=== PATIENT | female | born 1965 | race Caucasian/White ===

== ENCOUNTER 2016-10-25 15:45 | Emergency (ER) | payer OTHER ==
[~2016-10-25] VITALS: Ht 157.5 cm; Wt 126.6 kg
[~2016-10-25 15:45] MED LIST: ABL/15 PO; ALBU1AER9 INH; AMIT50TA3 PO; ATV/1 PO; ERGO500037 PO; EZET10TA63 PO; FLUT0.15 NAE; INSUINJ4 SQ; LEVO150T PO; LIRA18IN SC; LISI-725 PO; MOME110A INH; REPA2TAB12 PO; ROSU40TA PO; SERT-234 PO; SULI150T PO; SUMA6KIT IM; ZOLP10TA6 PO
[2016-10-25 15:48] VITALS: TEMP 36.7; Ht 157.5 cm; Wt 126.6 kg
[2016-10-25] MEDS ORDERED: ALBUT/IPRATROP 3MG/0.5MG NEB 3 ML VIAL INH STA (16:34)
[2016-10-25 16:57] LABS: BASO % 0.3 %; BASO ABS # 0.03 K/uL (0-0.2); COMPLETE YES; EOS % 0.9 %; HEMATOCRIT 42.3 % (37-47); IG% 0.3 %; LYMPH % 23.3 %; LYMPH ABS # 2.67 K/uL (1.2-3.4); MEAN CELL VOLUME 86.5 fL (80-100); MEAN CORPUSCULAR HGB CONC 32.4 g/dl (32-36); MEAN PLATELET VOLUME 10.1 fL (7.4-10.4); MONO % 3.1 %; NEUT % 72.1 %; PLATELET COUNT 229 K/uL (130-400); RED BLOOD COUNT 4.89 M/uL (4.2-5.4); WHITE BLOOD COUNT 11.45 K/uL (4.8-10.8)
[2016-10-25 17:13] LABS: PARTIAL THROMBOPLASTIN RATIO 1.1; PROTHROMBIN TIME (PATIENT) 10.4 SECONDS (9.0-12.0)
[2016-10-25 17:15] LABS: BUN/CREATININE RATIO 12.6 (10-20); CALCIUM 8.8 mg/dl (8.5-10.1); CREATININE 0.78 mg/dl (0.60-1.20); POTASSIUM 3.6 mmol/L (3.5-5.1)
--- NOTE | 2016-10-25 17:22 | DIAGNOSTIC IMAGING REPORT ---
CHEST ONE VIEW PORTABLE CLINICAL HISTORY: Evaluate Fever/Sepsis fever COMPARISON STUDY: 01/10/2016 FINDINGS: The bones soft tissues and hemidiaphragms are normal. The cardiomediastinal silhouette is normal. The lungs are clear. The pulmonary vasculature is normal. IMPRESSION: Negative chest. Electronically signed by: Donn Lazaro M.D. 10/25/2016 5:21 PM Dictated Date/Time: 10/25/2016 5:18 PM
[2016-10-25] MEDS ORDERED: ROSU40TA18 PO (17:49)
[2016-10-25] MEDS ORDERED: MELO15TA4 PO (17:49)
[2016-10-25] MEDS ORDERED: VNTHFA/IN INH (17:49)
[2016-10-25] MEDS ORDERED: ZLF/100 PO (17:49)
[2016-10-25] MEDS ORDERED: INSDGIPEN SC ×2 (17:49)
[2016-10-25] MEDS ORDERED: AMT/50 PO (17:49)
[2016-10-25] MEDS ORDERED: LEVO150T9 PO (17:49)
[2016-10-25] MEDS ORDERED: ARIP1TAB16 PO (17:49)
[2016-10-25] MEDS ORDERED: FLVHFA110 INH (17:49)
[2016-10-25] MEDS ORDERED: FLNIN/ NAE (17:49)
[2016-10-25] MEDS ORDERED: ATV1 PO (17:52)
[2016-10-25] MEDS ORDERED: ZTA10 PO (17:52)
[2016-10-25] MEDS ORDERED: LSN20 PO (17:52)
[2016-10-25] MEDS ORDERED: METF-384 PO (18:07)
[2016-10-25] MEDS ORDERED: DSY/150 PO (18:07)
--- NOTE | 2016-10-25 18:26 | EMERGENCY ROOM VISIT NOTE ---
History Report prepared by Timothy: Hussein Madrigal Under the Supervision of: Dr. Gene Hudson D.O. First contact with patient: 16:28 Chief Complaint: RESPIRATORY PROBLEMS Stated Complaint: DIFFICULTY BREATHING Nursing Triage Summary: Pt states, "I need a breathing treatment. I have asthma and I use oxygen at night. When I'm walking I breathe really heavy and try to catch my breath. I have an occasional cough, but it isn't that bad. I am diabetic and my sugar was low last night." History of Present Illness The patient is a 51 year old female who presents to the Emergency Room with complaints of intermittent shortness of breath beginning a few months ago. She rates her currently discomfort a 7/10 in severity. The patient states that she feels she needs a breathing treatment. She complains of rhinorrhea and a slight cough. The patient denies fevers and chest pain. She states that when she exerts herself, her symptoms worsen. The patient notes that she has a history of asthma and used her inhaler about 2 hours ago. She states that she was not able to sleep last night due to anxiety. The patient reports that she went to work today at [employer]. She notes that when she woke up this morning her blood sugar was low, so she ate something and brought it back to baseline. The patient reports she has a history of diabetes mellitus and hypertension. Source of History: patient Onset: few months ago Position: other (global) Symptom Intensity: 7/10 Quality: other (shortness of breath) Timing: intermittent Modifying Factors (Worsening): exertion Associated Symptoms: + cough, No fevers, No chest pain Note: Associated symptoms: rhinorrhea Review of Systems See HPI for pertinent positives & negatives. A total of 10 systems reviewed and were otherwise negative. Past Medical & Surgical Medical Problems: (1) Benign hypertension (2) Diabetes (3) Hyperlipidemia (4) Hypothyroidism (5) Obesity, morbid, BMI 40.0-49.9 Family History No pertinent family history stated. Social History Smoking Status: Current Every Day Smoker Alcohol Use: none Marital Status: single Housing Status: lives alone Occupation Status: employed Current/Historical Medications Scheduled Amitriptyline HCl (Amitriptyline HCl), 50 MG PO HS Amitriptyline Hcl (Amitriptyline Hcl), 50 MG PO HS Aripiprazole (Aripiprazole), 15 MG PO DAILY Ezetimibe (Zetia), 10 MG PO DAILY Fluticasone Propionate (Flovent Hfa), 1 PUFF INH BID Insulin Glargine (Lantus Solostar), 65 UNITS SC HS Insulin Glargine (Lantus Solostar), 40 UNITS SC QAM Levothyroxine Sodium (Levothyroxine Sodium), 150 MCG PO DAILY Liraglutide (Victoza), 1.8 MG SC QAM Lisinopril (Lisinopril), 20 MG PO DAILY Meloxicam (Meloxicam), 15 MG PO DAILY Metformin Hcl (Glucophage), 1,000 MG PO BID Oxygen (Oxygen), 2 LITERS NA HS Repaglinide (Prandin), 4 MG PO ACHS Rosuvastatin Calcium (Rosuvastatin Calcium), 40 MG PO DAILY Sertraline HCl (Sertraline HCl), 200 MG PO QAM Scheduled PRN Albuterol Hfa (Ventolin Hfa), 2 PUFFS INH QID PRN for SOB/Wheezing Fluticasone Propionate (Fluticasone Propionate), 2 SPRAYS JUDITH DAILY PRN for Allergy Symptoms Lorazepam (Lorazepam), 1 MG PO HS PRN for Anxiety Sumatriptan Succinate (Imitrex Statdose), 6 MG IM UD PRN for Migraine Trazodone HCl (Trazodone HCl), 150 MG PO HS PRN for Sleep Zolpidem Tartrate (Zolpidem Tartrate), 10 MG PO HS PRN for Sleep Allergies Coded Allergies: [place] (Verified Allergy, Mild, 01/10/16) Valproic Acid and Related (Verified Allergy, Mild, 01/10/16) Shellfish (Unverified Allergy, Unknown, unk, 01/10/16) Physical Exam Vital Signs Date Time Temp Pulse Resp B/P (MAP) Pulse Ox O2 Delivery O2 Flow Rate FiO2 10/25/16 18:38 87 16 124/66 91 10/25/16 17:21 86 16 116/71 92 Room Air 10/25/16 16:50 83 10/25/16 15:48 36.7 96 16 143/84 96 Room Air Physical Exam CONSTITUTIONAL/VITAL SIGNS: Reviewed / noted above. GENERAL: Non-toxic in appearance. INTEGUMENTARY: Warm, dry, and [place]. HEAD: Normocephalic. EYES: without scleral icterus or trauma. ENT/OROPHARYNX: clear and moist. LYMPHADENOPATHY/NECK: Is supple without lymphadenopathy or meningismus. RESPIRATORY: Lungs clear and equal. CARDIOVASCULAR: Regular rate and rhythm. GI/ABDOMEN: Soft and nontender. No organomegaly or pulsatile mass. No rebound or guarding. Normal bowel sounds. EXTREMITIES: Warm and well perfused. BACK: No CVA tenderness. NEUROLOGICAL: Intact without focal deficits. PSYCHIATRIC: normal affect. MUSCULOSKELETAL: Normally developed with good muscle tone. Medical Decision & Procedures ER Provider Diagnostic Interpretation: X ray results and stated below per my interpretation and radiology interpretation. CHEST ONE VIEW PORTABLE CLINICAL HISTORY: Evaluate Fever/Sepsis fever COMPARISON STUDY: 01/10/2016 FINDINGS: The bones soft tissues and hemidiaphragms are normal. The cardiomediastinal silhouette is normal. The lungs are clear. The pulmonary vasculature is normal. IMPRESSION: Negative chest. Electronically signed by: Donn Lazaro M.D. 10/25/2016 5:21 PM Dictated Date/Time: 10/25/2016 5:18 PM Laboratory Results 10/25/16 16:45 Red Blood Count 4.89, Mean Corpuscular Volume 86.5, Mean Corpuscular Hemoglobin 28.0, Mean Corpuscular Hemoglobin Concent 32.4, Mean Platelet Volume 10.1, Neutrophils (%) (Auto) 72.1, Lymphocytes (%) (Auto) 23.3, Monocytes (%) (Auto) 3.1, Eosinophils (%) (Auto) 0.9, Basophils (%) (Auto) 0.3, Neutrophils # (Auto) 8.27, Lymphocytes # (Auto) 2.67, Monocytes # (Auto) 0.35, Eosinophils # (Auto) 0.10, Basophils # (Auto) 0.03 10/25/16 16:45 Test 10/25/16 16:45 10/25/16 16:47 White Blood Count 11.45 K/uL (4.8-10.8) Red Blood Count 4.89 M/uL (4.2-5.4) Hemoglobin 13.7 g/dL (12.0-16.0) Hematocrit 42.3 % (37-47) Mean Corpuscular Volume 86.5 fL (80-100) Mean Corpuscular Hemoglobin 28.0 pg (25-34) Mean Corpuscular Hemoglobin Concent 32.4 g/dl (32-36) Platelet Count 229 K/uL (130-400) Mean Platelet Volume 10.1 fL (7.4-10.4) Neutrophils (%) (Auto) 72.1 % Lymphocytes (%) (Auto) 23.3 % Monocytes (%) (Auto) 3.1 % Eosinophils (%) (Auto) 0.9 % Basophils (%) (Auto) 0.3 % Neutrophils # (Auto) 8.27 K/uL (1.4-6.5) Lymphocytes # (Auto) 2.67 K/uL (1.2-3.4) Monocytes # (Auto) 0.35 K/uL (0.11-0.59) Eosinophils # (Auto) 0.10 K/uL (0-0.5) Basophils # (Auto) 0.03 K/uL (0-0.2) RDW Standard Deviation 46.2 fL (36.4-46.3) RDW Coefficient of Variation 14.6 % (11.5-14.5) Immature Granulocyte % (Auto) 0.3 % Immature Granulocyte # (Auto) 0.03 K/uL (0.00-0.02) Prothrombin Time 10.4 SECONDS (9.0-12.0) Prothromb Time International Ratio 1.0 (0.9-1.1) Activated Partial Thromboplast Time 29.3 SECONDS (21.0-31.0) Partial Thromboplastin Ratio 1.1 Anion Gap 9.0 mmol/L (3-11) Est Creatinine Clear Calc Drug Dose 107.5 ml/min Estimated GFR () 101.3 Estimated GFR (Non- 87.4 BUN/Creatinine Ratio 12.6 (10-20) Calcium Level 8.8 mg/dl (8.5-10.1) Bedside D-Dimer 99 ng/mlFEU (0-450) Bedside Troponin I 0.000 ng/ml (0-0.045) VA-Soa-B-Type Natriuretic Peptide 54 pg/ml (0-900) Laboratory results as stated above per my review. Medications Administered Medications (Trade) Dose Ordered Sig/Lore Route Start Time Stop Time Status Last Admin Dose Admin Albuterol/ Ipratropium (Duoneb) 3 ml NOW STAT INH 10/25/16 16:34 10/25/16 16:36 DC 10/25/16 16:40 3 ML ECG Indication: SOB/dyspnea Rate (beats per minute): 88 Rhythm: normal sinus Findings: no acute ischemic change, no ectopy ED Course 163: Previous medical records were reviewed. The patient was evaluated in room C12. A complete history and physical examination was performed. 1633: Ordered Duoneb 3ml INH 1828: On reevaluation, the patient is resting. I discussed the results and findings with the patient. She verbalized agreement of the treatment plan. The patient was discharged home. Medical Decision the differential was considered includes acute myocardial infarction, acute coronary syndrome, myocarditis, pericarditis, pericardial effusions /tamponad, esophageal perforation, pulmonary embolism, pneumonia, pneumothorax, cardiomyopathy, congestive heart, anemia , COPD/asthma exacerbation. Medication Reconciliation: I attest that I have personally reviewed the patient' s current medication list. Blood pressure Screening: Patient was found to have normal blood pressure on screening and does not require follow-up. This is a 51-year-old female who presents to the ED with a chief complaint of some shortness of breath. The patient states that she has been having trouble breathing over the past couple of months. She also reports a history of anxiety. She denies any recent illness other than a runny nose. She states that she has increased shortness of breath with exertion. Her vital signs are normal to slightly hypertensive. Her physical exam was unremarkable. Her chest x-ray did not show acute disease. CBC is normal. D-dimer and troponin are negative. BNP was normal. EKG shows a normal sinus rhythm. The patient was treated with a DuoNeb treatment. She was told the results. She was referred to her PCP for further follow-up. Impression Primary Impression: Dyspnea Additional Impressions: Anxiety Asthma Scribe Attestation The scribe's documentation has been prepared under my direction and personally reviewed by me in its entirety. I confirm that the note above accurately reflects all work, treatment, procedures, and medical decision making performed by me. Departure Information Dispostion Home / Self-Care Referrals Marc Joseph M.D. ([facility]) (PCP) Patient Instructions My [facility] Additional Instructions Your test results today did not show pneumonia, acute cardiac or pulmonary issue. Follow-up with your doctor for recheck in one to 3 days. Return for worsening or new concerns. Problem Qualifiers
[2016-10-25 18:38] VITALS: BP 124/66; PULSE 87; O2SAT 91
[2016-10-25] MEDS ORDERED: OXGN (19:45)
== END 2016-10-25 18:35 | disposition home or self-care (01) ==
LOC: C.EDB 15:46 → C.EDC 18:35
DX: R06.00 Dyspnea, unspecified (principal); J45.909 Unspecified asthma, uncomplicated; F41.9 Anxiety disorder, unspecified; J34.89 Other specified disorders of nose and nasal sinuses; E11.9 Type 2 diabetes mellitus without complications; I10 Essential (primary) hypertension; F17.210 Nicotine dependence, cigarettes, uncomplicated; Z79.4 Long term (current) use of insulin; E03.9 Hypothyroidism, unspecified; E66.01 Morbid (severe) obesity due to excess calories; Z68.41 Body mass index [BMI] 40.0-44.9, adult; Z79.899 Other long term (current) drug therapy

== ENCOUNTER 2017-05-20 12:27 | Emergency (ER) | payer OTHER ==
[~2017-05-20] VITALS: Ht 157.5 cm; Wt 122.0 kg
[~2017-05-20 12:27] MED LIST changes: -ABL/15 PO; -ALBU1AER9 INH; +AMT/50 PO; +ARIP1TAB16 PO; -ATV/1 PO; +ATV1 PO; +DSY/150 PO; -ERGO500037 PO; -EZET10TA63 PO; +FLNIN/ NAE; -FLUT0.15 NAE; +FLVHFA110 INH; +INSDGIPEN SC; -INSUINJ4 SQ; -LEVO150T PO; +LEVO150T9 PO; -LISI-725 PO; +LISI-726 PO; +MELO-83 PO; +METF-384 PO; -MOME110A INH; +OXGN; -ROSU40TA PO; +ROSU40TA19 PO; -SERT-234 PO; -SULI150T PO; +VNTHFA/IN INH; +ZLF/100 PO; +ZTA10 PO
[2017-05-20 12:32] VITALS: TEMP 37.1; Ht 157.5 cm; Wt 122.0 kg
--- NOTE | 2017-05-20 12:56 | EMERGENCY ROOM VISIT NOTE ---
History First contact with patient: 12:45 Chief Complaint: BACK INJURY Stated Complaint: INJURED BACK, WORK RELATED History of Present Illness The patient is a 52 year old female who presents to the Emergency Room via private vehicle with complaints of "injured back, work-related". The patient states that this past Tuesday she was at [facility] working, when there was a rack of clothes hangers that fell to the ground at the end of her shift and she picked them up. She notes that she did not feel pain immediately but upon returning home she felt pain in the right mid back in the muscles. She notes that yesterday the pain was quite severe therefore she had to call off work. She came here to be evaluated today but notes that she will fill the paperwork out for Worker's Compensation evaluation. She denies any lower extremity weakness, bowel or bladder incontinence, numbness or tingling in genital region. There is no chest pain, shortness of breath, abdominal pain. It is not worse with exertion, rather with movements side to side it is worse. She rates the overall pain as a 7/10. She does smoke, but denies any cough or production of sputum, swelling of the lower extremities, recent trauma or surgery. There is no hormone use. Review of Systems A complete 10-point Review of Systems was discussed with the patient, with pertinent positives and negatives listed in the History of Present Illness. All remaining Review of Systems questions can be considered negative unless otherwise specified. Past Medical/Surgical History Medical Problems: (1) Benign hypertension (2) Diabetes (3) Hyperlipidemia (4) Hypothyroidism (5) Obesity, morbid, BMI 40.0-49.9 Social History Smoking Status: Current Every Day Smoker Alcohol Use: none Marital Status: single Housing Status: lives alone Occupation Status: employed Current/Historical Medications Scheduled Amitriptyline HCl (Amitriptyline HCl), 50 MG PO HS Amitriptyline Hcl (Amitriptyline Hcl), 50 MG PO HS Aripiprazole (Aripiprazole), 15 MG PO DAILY Ezetimibe (Zetia), 10 MG PO DAILY Fluticasone Propionate (Flovent Hfa), 1 PUFF INH BID Home O2 Therapy (Oxygen), 2 LITERS NA HS Insulin Glargine (Lantus Solostar), 65 UNITS SC HS Insulin Glargine (Lantus Solostar), 40 UNITS SC QAM Levothyroxine Sodium (Levothyroxine Sodium), 150 MCG PO DAILY Liraglutide (Victoza), 1.8 MG SC QAM Lisinopril (Lisinopril), 20 MG PO DAILY Meloxicam (Meloxicam), 15 MG PO DAILY Metformin Hcl (Glucophage), 1,000 MG PO BID Repaglinide (Prandin), 4 MG PO ACHS Rosuvastatin Calcium (Rosuvastatin Calcium), 40 MG PO DAILY Sertraline HCl (Sertraline HCl), 200 MG PO QAM Scheduled PRN Albuterol Hfa (Ventolin Hfa), 2 PUFFS INH QID PRN for SOB/Wheezing Fluticasone Propionate (Fluticasone Propionate), 2 SPRAYS JUDITH DAILY PRN for Allergy Symptoms Lorazepam (Lorazepam), 1 MG PO HS PRN for Anxiety Sumatriptan Succinate (Imitrex Statdose), 6 MG IM UD PRN for Migraine Trazodone HCl (Trazodone HCl), 150 MG PO HS PRN for Sleep Zolpidem Tartrate (Zolpidem Tartrate), 10 MG PO HS PRN for Sleep Physical Exam Vital Signs Date Time Temp Pulse Resp B/P (MAP) Pulse Ox O2 Delivery O2 Flow Rate FiO2 05/20/17 12:32 37.1 87 18 160/90 96 Physical Exam VITAL SIGNS - Vital signs and nursing notes were reviewed. Stable. Hypertensive. She is not tachycardic and is saturating well on room air at 96%. GENERAL -52-year-old female appearing her stated age who is in no acute distress. Communicates well with provider and answers questions appropriately. SKIN - Without rashes. No petechial rashes. HEAD - NC/AT. EYES - Sclera anicteric. No hyphema no hyphema..EARS - No deformities of external structures noted on gross examination bilaterally. NOSE - Midline and without cyanosis. No epistaxis or purulent drainage noted. MOUTH/OROPHARYNX - Without perioral cyanosis. LUNGS - Chest wall symmetric without accessory muscle use, intercostals retractions, or central cyanosis. Normal vesicular breath sounds CTA B/L. No wheezes, rales, or rhonchi appreciated. CARDIAC - RRR with S1/S2. No murmur, rubs, or gallops appreciated. ABDOMEN - Abdominal contour normal without pulsations or visible masses. No tenderness. EXTREMITIES - No clubbing or peripheral cyanosis. No pretibial edema present. + 5/5 strength noted in UE/LE bilaterally. MUSCULOSKELETAL: There is reproducible tenderness in the right paraspinous musculature of the thoracic spine appreciated upon rotation of the torso to the left. Minimal reproduction upon palpation. NEUROLOGIC - Cranial nerves II through XII grossly intact. PSYCH - A&O, and cooperates fully with examiner. Pt is very pleasant and interacts well with examiner. Medical Decision & Procedures Medical Decision Patient was seen and evaluated as above. She presents to us today with right- sided back pain. It is reproducible on exam. There is paraspinous muscle tenderness of the thoracic spine. I suspect muscle strain. There is no evidence of MN or PE. There is no chest pain or shortness of breath. I believe she is stable for outpatient follow-up with the appropriate Worker's Compensation individual. She is feeling better. Because of her medication regimen I will not add a muscle relaxant secondary to the risk of serotonin syndrome. At this time she appears stable to take [id number] medication such as Tylenol. She was educated upon management, educated upon worrisome symptoms in which to return, had questions and provided discharge, and was discharged home in good condition. In evaluation treatment this patient following differential diagnoses were entertained: MN, PE, muscle strain, fracture, dislocation, among others. Medication Reconcilliation Current Medication List: was personally reviewed by me Blood Pressure Screening Patient's blood pressure: Elevated blood pressure Blood pressure disposition: Elevated BP felt to be situational Impression Primary Impression: Strain of thoracic region Departure Information Dispostion Home / Self-Care Condition GOOD Referrals Marc Joseph M.D.([facility]) (PCP) Patient Instructions My [facility] Additional Instructions You have been treated in the Emergency Department for Back Pain. For pain control, you can use the following [id number] medicines (if >12 yo): - Regular strength (325mg/tab) Tylenol (acetaminophen) 2 tabs every 4-6 hours as needed. Do not exceed 12 tablets in a 24 hour period. Avoid taking more than 3 grams (3000 mg) of Tylenol per day. This includes any other sources of acetaminophen you may take on a regular basis. If this is an acute injury, ice can be applied to the area of pain for the first 3 days to help decrease pain and inflammation. After the first 3 days, a heating pad can be used over the area for continued soothing relief. You should schedule a follow-up appointment in 2-3 days with your Primary Care Provider for further evaluation and treatment of your back pain. Please also followed with the approved Worker's Compensation for further evaluation and management. As we discussed please return if he developed chest pain, shortness of breath or if this worsens. Return to the Emergency Department if your current symptoms worsen despite treatment course outlined above, or if you develop any of the following symptoms : intractable pain despite aforementioned treatment course, loss of control of your bowel or bladder, numbness or tingling in your groin, or development of a fever.
[2017-05-20] MEDS ORDERED: METF500T5 PO (13:06)
[2017-05-20] MEDS ORDERED: EMPA1TAB3 PO (13:06)
[2017-05-20 13:28] VITALS: BP 149/97; PULSE 87; O2SAT 98
--- NOTE | 2017-05-20 13:29 | EMERGENCY ROOM VISIT NOTE ---
ED Visit Note First contact with patient: 12:45 The patient was seen and examined with Ralph Batista PA-C. I agree with the history, physical and findings. Please see the note for disposition and details.
== END 2017-05-20 13:32 | disposition home or self-care (01) ==
LOC: C.EDB 12:28 → C.EDD 13:32
DX: S23.3XXA Sprain of ligaments of thoracic spine, initial encounter (principal); Y99.0 Civilian activity done for income or pay; Y92.89 Other specified places as the place of occurrence of the external cause; Y93.89 Activity, other specified; X50.0XXA Overexertion from strenuous movement or load, initial encounter; F17.210 Nicotine dependence, cigarettes, uncomplicated; I10 Essential (primary) hypertension; E11.9 Type 2 diabetes mellitus without complications; E78.5 Hyperlipidemia, unspecified; E03.9 Hypothyroidism, unspecified; E66.01 Morbid (severe) obesity due to excess calories; Z68.41 Body mass index [BMI] 40.0-44.9, adult; Z79.4 Long term (current) use of insulin; Z79.84 Long term (current) use of oral hypoglycemic drugs; Z79.899 Other long term (current) drug therapy

== ENCOUNTER 2019-10-17 14:03 | Inpatient (IN) ==
[2019-10-17] MEDS ORDERED: SODIUM CHLORIDE 0.9% 1000ML 1,000 ML IV ONE (14:42)
[2019-10-17 15:00] LABS: Basophils # (auto) 0.03 K/uL (0-0.2); Basophils % (auto) 0.2 %; Eosinophils # (auto) 0.12 K/uL (0-0.5); Eosinophils % (auto) 0.8 %; Hematocrit (blood only) 41.7 % (37-47); Hemoglobin 14.1 g/dL (12.0-16.0); Immature Granulocytes # (auto) 0.04 K/uL (0.00-0.02); Immature Granulocytes % (auto) 0.3 %; Lymphocytes # (auto) 2.07 K/uL (1.2-3.4); Lymphocytes % (auto) 13.6 %; Mean Corpuscular Hemoglobin 29.3 pg (25-34); Mean Corpuscular Hgb Conc 33.8 g/dL (32-36); Mean Corpuscular Volume 86.7 fL (80-100); Mean Platelet Volume 10.4 fL (7.4-10.4); Monocytes # (auto) 0.63 K/uL (0.11-0.59); Monocytes % (auto) 4.1 %; Neutrophils # (auto) 12.37 K/uL (1.4-6.5); Platelet Count 230 K/uL (130-400); RDW Coefficient of Variation 13.8 % (11.5-14.5); RDW Standard Deviation 43.5 fL (36.4-46.3); Red Blood Count 4.81 M/uL (4.2-5.4); White Blood Count 15.26 K/uL (4.8-10.8)
--- NOTE | 2019-10-17 15:02 | Emergency Department Note ---
History of Present Illness General Chief complaint: Illness Source: patient Mode of arrival: ambulatory Limitations: no limitations History of Present Illness Provider complaint: Cough, shortness of breath, sweats, diarrhea, nausea Onset (ago): week(s) 1 Maximum Pain Intensity: 8 Current Pain Intensity: 8 This 54-year-old female patient presents the emergency department today via ambulance with multiple complaints. The patient states 1 week ago, she developed a migraine headache. At this time, she was generally feeling rundown, fatigued, with muscle aches. The migraine improved by the next day, but she continues to experience some shortness of breath, sweats, diarrhea, coughing, body aches, fatigue. The patient states the diarrhea has resolved. She went to work at [employer] today when her symptoms worsened, prompting her coworkers to contact EMS to transport the patient for evaluation. The patient denies any chest pain, but does report some shortness of breath. She was placed on oxygen and does feel that the oxygen is helping. The patient denies any vomiting. She denies any hematochezia, hematemesis, or melena. She denies any abdominal pain. Patient denies any numbness, tingling, ongoing headache, visual disturbances, neck pain. She is a current smoker. She has taken no medications for her symptoms. Pt. denies known Covid-19 exposures. Home Medications Home Medications Medication Instructions Recorded Confirmed Type amitriptyline 50 mg PO HS 09/13/18 10/17/19 History aripiprazole 10 mg PO DAILY 09/13/18 10/17/19 History calcium carbonate-vitamin D3 1 tab PO DAILY 09/13/18 10/17/19 History [Calcium 600 + D(3)] ergocalciferol (vitamin D2) 50,000 unit PO WK 09/13/18 10/17/19 History ezetimibe 10 mg PO DAILY 09/13/18 10/17/19 History hydroxyzine HCl 25 mg PO BID 09/13/18 10/17/19 History insulin glargine [Lantus Solostar 42 units SUBCUT QAM 09/13/18 10/17/19 History U-100 Insulin] insulin glargine [Lantus Solostar 55 units SUBCUT HS 09/13/18 10/17/19 History U-100 Insulin] levothyroxine 150 mcg PO QAM 09/13/18 10/17/19 History lisinopril 20 mg PO DAILY 09/13/18 10/17/19 History meloxicam 15 mg PO DAILY 09/13/18 10/17/19 History metformin 1,000 mg PO BID 09/13/18 10/17/19 History ohiwzgul-gyc-CO-lycopen-lutein 1 tab PO DAILY 09/13/18 10/17/19 History [Spectravite Adult 50 Plus] repaglinide 4 mg PO ACHS 09/13/18 10/17/19 History rosuvastatin 40 mg PO DAILY 09/13/18 10/17/19 History sertraline 200 mg PO QAM 09/13/18 10/17/19 History trazodone 150 mg PO HS 09/13/18 10/17/19 History rizatriptan 10 mg PO DIRECTED PRN 10/17/19 10/17/19 History zolpidem 10 mg PO DIRECTED PRN 10/17/19 10/17/19 History Allergies Allergy/AdvReac Type Severity Reaction Status Date / Time shellfish derived Allergy Intermediate IF EATEN Verified 10/17/19 16:01 IN LARGE AMT--NAUSEA, SMALL AMT OK. valproic acid Allergy Unknown Unknown Verified 10/17/19 16:01 lithium AdvReac Intermediate CLUMSY Verified 10/17/19 16:01 WHEN WALKING Past Med/Surg History Social History Feels Safe at Home: Yes Smoking Status: Current every day smoker Review of Systems A total of 10 systems reviewed and were otherwise negative Physical Exam Vital Signs Vital Signs - 24 hr 10/17/19 14:12 10/17/19 14:28 10/17/19 14:30 Temperature 37.5 C Temperature Source Oral Pulse Rate 105 H 104 H 101 H Pulse Rate from SpO2 Sensor 105 H 100 H Respiratory Rate 20 20 35 H Blood Pressure 134/68 134/68 123/66 Blood Pressure Mean 83 90 93 Pulse Oximetry 97 91 97 Oxygen Delivery Method Room Air Oxygen Flow Rate Sepsis Recent Fever Within 48 Hours No Sepsis New/Unexplained Change in Mental Status No Sepsis Action Taken by Nursing No Action Required 10/17/19 14:45 10/17/19 15:00 10/17/19 15:30 Temperature Temperature Source Pulse Rate 95 H 93 H Pulse Rate from SpO2 Sensor 95 H 93 H Respiratory Rate 23 25 H Blood Pressure 124/67 114/57 L Blood Pressure Mean 91 74 Pulse Oximetry 96 97 97 Oxygen Delivery Method Nasal Cannula Room Air Room Air Oxygen Flow Rate 4 Sepsis Recent Fever Within 48 Hours Sepsis New/Unexplained Change in Mental Status Sepsis Action Taken by Nursing 10/17/19 16:01 Temperature Temperature Source Pulse Rate 91 H Pulse Rate from SpO2 Sensor 91 H Respiratory Rate 18 Blood Pressure 122/65 Blood Pressure Mean 90 Pulse Oximetry 99 Oxygen Delivery Method Room Air Oxygen Flow Rate Sepsis Recent Fever Within 48 Hours Sepsis New/Unexplained Change in Mental Status Sepsis Action Taken by Nursing VITALS: Vitals are noted on the nurse's note and reviewed by myself. Patient is tachycardic. Patient is afebrile. O2 saturation 91% on room air. No hypoxia GENERAL: This is a 54-year-old obese white female, in no acute distress, nondiaphoretic, well-developed well-nourished. SKIN: The skin was without rashes, erythema, edema, or bruising. There is no tenting of the skin. Capillary refill less than 2 seconds. HEAD: Normocephalic atraumatic. EYES: Conjunctivae without injection, sclerae without icterus. NECK: Supple without nuchal rigidity. No lymphadenopathy. No JVD. HEART: Regular rate and rhythm without murmurs gallops or rubs. LUNGS: Patient in no acute respiratory distress, however there is increased work of breathing. Patient able to speak clearly in full sentences. Not obviously short of breath. No retractions or accessory muscle use. ABDOMEN: Normal tympanic percussion. Soft, nontender, without masses or organomegaly. Valencia sign negative. No guarding or rebound tenderness. MUSCULOSKELETAL: No muscle atrophy, erythema, or edema noted. Full range of motion without joint tenderness in all extremities. No tenderness to palpation. Normal gait. Strength 5/5 throughout. NEURO: Patient was alert and oriented to person place and time. No focal neurological deficits. Course Course The patient was seen and evaluated as above. An order was placed for continuous cardiac monitoring. The monitor shows a sinus tachycardia at a rate of 104 bpm. IV access obtained, labs drawn. Patient medicated with IV fluids. Imaging performed and reviewed by myself and radiologist as noted. Labs reviewed by myself. I discussed the findings with the patient via phone due to isolation precautions. She is feeling somewhat better. I discussed the case with the business integration manager. I discussed the case with Dr. Cook, [facility] hospitalist. He did agree to see and evaluate the patient. Administered Medications Discontinued Medications Sodium Chloride (Nss 1000ml) 1,000 mls @ 999 mls/hr IV .Q1H1M ONE Stop: 10/17/19 15:42 Last Infusion: 10/17/19 16:15 Dose: 0 mls/hr Documented by: [id number] Admin: 10/17/19 14:48 Dose: 999 mls/hr Documented by: [id number] Medical Decision Making Differential Diagnosis Viral syndrome, otitis, pharyngitis, pneumonia, influenza, meningitis, urinary tract infection, sepsis, bacteremia, as well as other pathologies. Home Medications Current Medication List: was personally reviewed by me Laboratory Data Attestation: I reviewed the patient's lab results. Leukocytosis of 15,000. No anemia or thrombocytopenia. Patient does appear to have an acute kidney injury with a creatinine of 1.8. BUN of 36. Mild hypo natremia of 132. Electrolytes without significant abnormality. LFTs without significant abnormality. Lipase 138. Troponin negative. Lyme disease testing negative. Result diagrams: 10/17/19 14:25 10/17/19 14:25 Lab Results 10/17/19 10/17/19 10/17/19 Range/Units 14:25 14:25 14:25 WBC 15.26 H (4.8-10.8) K/uL RBC 4.81 (4.2-5.4) M/uL Hgb 14.1 (12.0-16.0) g/dL Hct 41.7 (37-47) % MCV 86.7 (80-100) fL MCH 29.3 (25-34) pg MCHC 33.8 (32-36) g/dL RDW Std Deviation 43.5 (36.4-46.3) fL RDW Coeff of Silvia 13.8 (11.5-14.5) % Plt Count 230 (130-400) K/uL MPV 10.4 (7.4-10.4) fL Immature Gran % (Auto) 0.3 % Neut % (Auto) 81.0 % Lymph % (Auto) 13.6 % [place] % (Auto) 4.1 % Eos % (Auto) 0.8 % Baso % (Auto) 0.2 % Immature Gran # (Auto) 0.04 H (0.00-0.02) K/uL Neut # (Auto) 12.37 H (1.4-6.5) K/uL Lymph # (Auto) 2.07 (1.2-3.4) K/uL [place] # (Auto) 0.63 H (0.11-0.59) K/uL Eos # (Auto) 0.12 (0-0.5) K/uL Baso # (Auto) 0.03 (0-0.2) K/uL ESR (0-21) mm/hr PT 10.7 (9.0-12.0) Seconds INR 1.0 (0.9-1.1) APTT 31.4 H (21.0-31.0) Seconds PTT Ratio 1.1 D-Dimer 280 (0-500) ug/L FEU Sodium 132 L (136-145) mmol/L Potassium 4.5 (3.5-5.1) mmol/L Chloride 101 (98-107) mmol/L Carbon Dioxide 21 (21-32) mmol/L Anion Gap 11.0 (3-11) BUN 36 H (7-18) mg/dl Creatinine 1.88 H (0.6-1.2) mg/dl Est Cr Clr Drug Dosing 41.7 ml/min Est GFR ( Amer) 34.2 Est GFR (Non-Af Amer) 29.5 BUN/Creatinine Ratio 19.1 (10-20) Glucose 262 H (70-99) mg/dl Calcium 10.3 H (8.5-10.1) mg/dl Magnesium 1.8 (1.8-2.4) mg/dl Total Bilirubin 0.9 (0.2-1) mg/dl AST 33 (15-37) U/L ALT 50 (12-78) U/L Alkaline Phosphatase 96 (45-117) U/L Troponin I < 0.015 (0-0.045) ng/ml Total Protein 7.5 (6.4-8.2) gm/dl Albumin 4.0 (3.4-5.0) gm/dl Globulin 3.5 (2.5-4.0) gm/dl Albumin/Globulin Ratio 1.1 (0.9-2) Lipase 138 (73-393) U/L TSH 1.460 (0.300-4.500) uIu/ml Lyme Disease IgG Ab (Negative) Lyme Disease IgM Ab (Negative) 10/17/19 10/17/19 Range/Units 14:25 14:25 WBC (4.8-10.8) K/uL RBC (4.2-5.4) M/uL Hgb (12.0-16.0) g/dL Hct (37-47) % MCV (80-100) fL MCH (25-34) pg MCHC (32-36) g/dL RDW Std Deviation (36.4-46.3) fL RDW Coeff of Silvia (11.5-14.5) % Plt Count (130-400) K/uL MPV (7.4-10.4) fL Immature Gran % (Auto) % Neut % (Auto) % Lymph % (Auto) % [place] % (Auto) % Eos % (Auto) % Baso % (Auto) % Immature Gran # (Auto) (0.00-0.02) K/uL Neut # (Auto) (1.4-6.5) K/uL Lymph # (Auto) (1.2-3.4) K/uL [place] # (Auto) (0.11-0.59) K/uL Eos # (Auto) (0-0.5) K/uL Baso # (Auto) (0-0.2) K/uL ESR 32 H (0-21) mm/hr PT (9.0-12.0) Seconds INR (0.9-1.1) APTT (21.0-31.0) Seconds PTT Ratio D-Dimer (0-500) ug/L FEU Sodium (136-145) mmol/L Potassium (3.5-5.1) mmol/L Chloride (98-107) mmol/L Carbon Dioxide (21-32) mmol/L Anion Gap (3-11) BUN (7-18) mg/dl Creatinine (0.6-1.2) mg/dl Est Cr Clr Drug Dosing ml/min Est GFR ( Amer) Est GFR (Non-Af Amer) BUN/Creatinine Ratio (10-20) Glucose (70-99) mg/dl Calcium (8.5-10.1) mg/dl Magnesium (1.8-2.4) mg/dl Total Bilirubin (0.2-1) mg/dl AST (15-37) U/L ALT (12-78) U/L Alkaline Phosphatase (45-117) U/L Troponin I (0-0.045) ng/ml Total Protein (6.4-8.2) gm/dl Albumin (3.4-5.0) gm/dl Globulin (2.5-4.0) gm/dl Albumin/Globulin Ratio (0.9-2) Lipase (73-393) U/L TSH (0.300-4.500) uIu/ml Lyme Disease IgG Ab Negative (Negative) Lyme Disease IgM Ab Negative (Negative) Imaging Data Radiologist's Impression: XR chest 1V portable HISTORY: Shortness of breath. COMPARISON: Chest 10/25/2016. FINDINGS: No pneumothorax. No pleural effusions. Mild chronic interstitial thickening, unchanged. The heart is normal in size. No new focal lung consolidations to suggest pneumonia. No evidence for pulmonary edema. IMPRESSION: No significant change compared to the prior study. No acute process. ACT 112: Negative or not required by law. Electronically signed by: Carlitos Vogel M.D. 10/17/2019 4:49 PM ECG Data Attestation: I personally reviewed and interpreted this ECG as follows: Indication: + SOB/dyspnea Rate (beats per minute): 103 Rhythm: + sinus tachycardia ECG [place]: + Normal ECG ST segments: no ST depression, no ST elevation and no T-wave inversions Blood Pressure Blood Pressure Findings: Elevated blood pressure Blood Pressure Disposition: elevated BP felt to be situational MDM Narrative This 54-year-old female patient presents the emergency department today for evaluation of dyspnea, cough, nausea, diarrhea, and sweats. Symptoms have been ongoing for approximately 1 week, but worsening today. Symptoms worsened today while working. Patient states cough is nonproductive. She has been afebrile. Upon initial evaluation, she was tachycardic and borderline hypoxic with an O2 saturation of 91%. Her symptoms, work of breathing, and hypoxia improved with oxygen administration. Patient does have a leukocytosis of 15,000. No clear evidence of pneumonia on chest x-ray, however there does appear to be some increased interstitial thickening on imaging. Suspect bronchitis, but COVID testing is pending. Patient does also seem to have an GEORGE with an elevated creatinine of 1.88 and BUN of 36. Given these findings, I do recommend inpatient management. The patient will be admitted to the [facility] service. Please see their dictation regarding ongoing management and care of this patient. The chart was completed utilizing [employer] Speech voice recognition software. Grammatical errors, random word insertions, pronoun errors, and incomplete sentences are an occasional consequence of this system due to software limitations, ambient noise, and hardware issues. Any formal questions or concerns about the content, text, or information contained within the body of this dictation should be directly addressed to the provider for clarification. Impression & Plan Acute dyspnea, Hypoxia, Myalgia Discharge Plan Visit Data Chief Complaint: Illness ED Provider: Reymundo Ferraro ED Midlevel Provider: Ingrid Saleh Discharge Problem: Acute dyspnea, Hypoxia, Myalgia Patient Disposition: Admitted As Inpatient Forms Stand Alone Forms: [facility] Prescriptions Prescriptions: No Action metformin 500 mg Tablet 1,000 mg PO BID RF: 0 repaglinide 2 mg Tablet 4 mg PO ACHS RF: 0 meloxicam 15 mg Tablet 15 mg PO DAILY RF: 0 lisinopril 20 mg Tablet 20 mg PO DAILY RF: 0 sertraline 100 mg tablet 200 mg PO QAM RF: 0 calcium carbonate-vitamin D3 [Calcium 600 + D(3)] 600 mg(1,500mg) -200 unit Tablet 1 tab PO DAILY RF: 0 amitriptyline 50 mg Tablet 50 mg PO HS RF: 0 trazodone 150 mg tablet 150 mg PO HS RF: 0 levothyroxine 150 mcg Tablet 150 mcg PO QAM RF: 0 hydroxyzine HCl 25 mg tablet 25 mg PO BID RF: 0 ergocalciferol (vitamin D2) 50,000 unit capsule 50,000 unit PO WK RF: 0 ezetimibe 10 mg Tablet 10 mg PO DAILY RF: 0 aripiprazole 10 mg tablet 10 mg PO DAILY RF: 0 rosuvastatin 40 mg Tablet 40 mg PO DAILY RF: 0 Spectravite Adult 50 Plus 0.4-300-250 mg-mcg-mcg Tablet 1 tab PO DAILY RF: 0 Lantus Solostar U-100 Insulin 100 unit/mL (3 mL) Insulin Pen 55 units subcut HS RF: 0 Lantus Solostar U-100 Insulin 100 unit/mL (3 mL) Insulin Pen 42 units subcut QAM RF: 0 rizatriptan 10 mg tablet 10 mg PO DIRECTED PRN (Reason: Migraine Headache) RF: 0 zolpidem 10 mg tablet 10 mg PO DIRECTED PRN (Reason: Sleep) RF: 0 Referrals Referrals: Marc Joseph MD [Primary Care Provider] -
[2019-10-17 15:07] LABS: Alanine Aminotransferase 50 U/L (12-78); Aspartate Aminotransferase 33 U/L (15-37); BUN Creatinine Ratio 19.1 (10-20); Blood Urea Nitrogen 36 mg/dl (7-18); Calcium 10.3 mg/dl (8.5-10.1); Carbon Dioxide 21 mmol/L (21-32); Chloride 101 mmol/L (98-107); Creatinine Clr Calc Pharmacy 41.7 ml/min; Est GFR (African American) 34.2; Est GFR (Non-African American) 29.5; Glucose 262 mg/dl (70-99); Lipase 138 U/L (73-393); Magnesium 1.8 mg/dl (1.8-2.4); Potassium 4.5 mmol/L (3.5-5.1); Sodium 132 mmol/L (136-145)
[2019-10-17 15:17] LABS: D Dimer 280 ug/L FEU (0-500); Partial Thromboplastin Ratio 1.1; Partial Thromboplastin Time 31.4 Seconds (21.0-31.0); Prothrombin Time 10.7 Seconds (9.0-12.0)
[2019-10-17 15:18] LABS: Albumin Globulin Ratio 1.1 (0.9-2); Alkaline Phosphatase 96 U/L (45-117); Bilirubin,Total 0.9 mg/dl (0.2-1); Globulin 3.5 gm/dl (2.5-4.0); Total Protein 7.5 gm/dl (6.4-8.2); Troponin I < 0.015 ng/ml (0-0.045)
[2019-10-17 16:02] LABS: Lyme Ab IgG w/WB Rflx Negative (Negative); Lyme Ab IgM w/WB Rflx Negative (Negative)
--- NOTE | 2019-10-17 16:50 | Electrocardiogram Report ---
Test Reason : Blood Pressure : / mmHG Vent. Rate : 103 BPM Atrial Rate : 103 BPM P-R Int : 160 ms QRS Dur : 090 ms QT Int : 348 ms P-R-T Axes : 031 -07 058 degrees QTc Int : 455 ms Sinus tachycardia Poor R wave progression, consider anterior CT vs. lead placement vs. LVH Abnormal ECG When compared with ECG of 25-OCT-2016 16:35, No significant change was found Confirmed by Onofre Bryant ([id number]) on 10/17/2019 4:49:52 PM Referred By: Confirmed By:Onofre Bryant
--- NOTE | 2019-10-17 16:50 | XRay Report ---
XR chest 1V portable HISTORY: Shortness of breath. COMPARISON: Chest 10/25/2016. FINDINGS: No pneumothorax. No pleural effusions. Mild chronic interstitial thickening, unchanged. The heart is normal in size. No new focal lung consolidations to suggest pneumonia. No evidence for pulm onary edema. IMPRESSION: No significant change compared to the prior study. No acute process. ACT 112: Negative or not required by law. Electronically signed by: Carlitos Vogel M.D. 10/17/2019 4:49 PM
[2019-10-17] MEDS ORDERED: MAGNESIUM SULFATE / D5W 1 GM/100 ML BAG IV ONE (17:25)
[2019-10-17] MEDS ORDERED: GLUCAGON FOR INJ 1 MG VIAL SQ PRN (17:26)
[2019-10-17] MEDS ORDERED: CARBOHYDRATES FOR HYPOGLYCEMIA PO PRN (17:26)
[2019-10-17] MEDS ORDERED: GLUCOSE 10 TABS/TUBE PO PRN (17:26)
[2019-10-17] MEDS ORDERED: GLUCOSE 40% GEL 15 GM TUBE PO PRN (17:26)
[2019-10-17] MEDS ORDERED: DEXTROSE 50% 50 ML SYRINGE IV PRN (17:26)
[2019-10-17] MEDS ORDERED: ACETAMINOPHEN 325 MG TAB PO PRN (17:42)
[2019-10-17] MEDS ORDERED: ONDANSETRON INJ 2 MG/ML 2 ML VIAL IV PRN (17:42)
[2019-10-17] MEDS ORDERED: ZOLPIDEM TARTRATE 5 MG TAB PO PRN (17:45)
--- NOTE | 2019-10-17 17:47 | History & Physical Report ---
Date of Service This is a patient who is obese with 2 weeks of diarrhea and recently also feels shorteness of breath and also reported to ED physican of headache, has outpatie nt history of migraine headaches, recent mild throat pain that resolved, and also reported of myalgia in nonspecific areas of the body of the trunk/back/legs. Patient found to have acute kidney injury with creatinine of 1.88. Patient denies fevers. She was sent off COVID 19 nasal swab by ED provider because of miscellaneous, non specific symptoms. ED provider also ruled out Lyme disease with testing. Patient not in acute distress. She reports she has been hydrating with juice and she is insulin dependent diabetic. patient denies problems with ruination Family History: family history of diabetes and hypertension as per patient October 17, 2019 Assessment & Plan (1) GEORGE (acute kidney injury): -reports recent diarrhea in 2 weeks -admission creatinine of 1.88 compared to outpatient labs of creatinine under 1 suggests pre-renal acute injury from dehydration -patient was hydrating with juice at home and given her diabetes, she can have more urine output if drinking sugar loaded beverages -serum calcium of 10.3 as well as leukocytosis of 15,000 may reflect dehydration -give IV fluids with normal saline -hold home dose lisinopril while monitoring the creatinine (2) Myalgia: -may be related to dehydration -check creatinine kinase -negative Lyme testing on admission -rule out COVID-19, COVID 19 screening test pending, continue airborne and contact isolation for now -Obesity may increase incidence of myalgia, advise weight loss with primary care doctor but this can be difficult given high insulin needs at home Hypothyroidism -TSH in normal range, continue home dose Levothyroxine History of migraines -prn acetaminophen for now (3) Shortness of breath: -patient's subjective shortness of breath is vaguely described -monitor oxygen levels overnight -patient's outpatient history of Nocturnal hypoxemia and given her large body habitus, there may be component of obstructive sleep apnea that needs to be ruled out -mild persistent asthma on outpatient records but no wheezing on lung exam -admission Chest X ray are not impressive for acute pulmonary condition: No pneumothorax. No pleural effusions. Mild chronic interstitial thickening, unchanged. The heart is normal in size. No new focal lung consolidations to suggest pneumonia. No evidence for pulmonary edema. -procalcitonin negative -will ultrasound the legs to rule out DVT (4) Diabetes type 2, uncontrolled: Obesity -Hemoglobin A1c 9.9 as outpatient -check HbA1c on this presentation -continue home dose Lantus of 42 units daily with 55 units QHS -sliding scale insulin as needed -hold home dose repaglinide and metformin while in hospital for now Depression, Post Traumatic Stress Disorder, Schizoaffective Disorder, Generalized Anxiety Disorder -hold home medications for now while treating the diarrhea and acute kidney injury DVT prophylaxis -heparin subc q12 hours History of Present Illness Primary Care Provider: Marc Joseph MD Allergies Allergy/AdvReac Type Severity Reaction Status Date / Time shellfish derived Allergy Intermediate IF EATEN Verified 10/17/19 16:01 IN LARGE AMT--NAUSEA, SMALL AMT OK. valproic acid Allergy Unknown Unknown Verified 10/17/19 16:01 lithium AdvReac Intermediate CLUMSY Verified 10/17/19 16:01 WHEN WALKING Home Medications Home Medications Medication Instructions Recorded Confirmed Type amitriptyline 50 mg PO HS 09/13/18 10/17/19 History aripiprazole 10 mg PO DAILY 09/13/18 10/17/19 History calcium carbonate-vitamin D3 1 tab PO DAILY 09/13/18 10/17/19 History [Calcium 600 + D(3)] ergocalciferol (vitamin D2) 50,000 unit PO WK 09/13/18 10/17/19 History ezetimibe 10 mg PO DAILY 09/13/18 10/17/19 History hydroxyzine HCl 25 mg PO BID 09/13/18 10/17/19 History insulin glargine [Lantus Solostar 42 units SUBCUT QAM 09/13/18 10/17/19 History U-100 Insulin] insulin glargine [Lantus Solostar 55 units SUBCUT HS 09/13/18 10/17/19 History U-100 Insulin] levothyroxine 150 mcg PO QAM 09/13/18 10/17/19 History lisinopril 20 mg PO DAILY 09/13/18 10/17/19 History meloxicam 15 mg PO DAILY 09/13/18 10/17/19 History metformin 1,000 mg PO BID 09/13/18 10/17/19 History skyhukie-utz-ZN-lycopen-lutein 1 tab PO DAILY 09/13/18 10/17/19 History [Spectravite Adult 50 Plus] repaglinide 4 mg PO ACHS 09/13/18 10/17/19 History rosuvastatin 40 mg PO DAILY 09/13/18 10/17/19 History sertraline 200 mg PO QAM 09/13/18 10/17/19 History trazodone 150 mg PO HS 09/13/18 10/17/19 History rizatriptan 10 mg PO DIRECTED PRN 10/17/19 10/17/19 History zolpidem 10 mg PO DIRECTED PRN 10/17/19 10/17/19 History Past Med/Surg History Social History Feels Safe at Home: Yes Smoking Status: Current every day smoker Review of Systems Review of Systems: All systems reviewed & are unremarkable except as noted in Subjective Physical Exam Constitutional: WD/WN, vitals as above + obese and cooperative Eyes: PERRL, conjunctivae normal, anicteric sclerae EOM intact bilaterally ENMT: external ear and nose normal, oropharynx normal Neck: normal visual inspection Respiratory: normal respiratory effort, lungs clear to auscultation Cardiovascular: Rate/Rhythm: regular rate and regular rhythm Gastrointestinal (Abdomen): normal bowel sounds, soft, nontender, no hepatosplenomegaly Percussion/Palpation: abdomen soft Musculoskeletal: Head/Neck/Chest: normocephalic and head atraumatic Neurologic: PERRL, EOMI, accommodation nl, no face palsy, no dysarthria CN's II-XI intact bilaterally Psychiatric: A+Ox3, euthymic affect Results & Data Results & Data ([facility]) Vital Signs (Past 12 Hours) Vital Signs Temp Pulse Resp BP Pulse Ox 10/17/19 16:01 91 H 18 122/65 99 10/17/19 15:30 93 H 25 H 114/57 L 97 10/17/19 15:00 95 H 23 124/67 97 10/17/19 14:45 96 10/17/19 14:30 101 H 35 H 123/66 97 10/17/19 14:28 37.5 C 104 H 20 134/68 91 10/17/19 14:12 105 H 20 134/68 97 Code Status & VTE Plan VTE Prophylaxis Plan VTE Prophylaxis will be ordered: Yes
[2019-10-17] MEDS ORDERED: INSULIN GLARGINE SOLOSTAR 100 UNITS/ML 3 ML PEN SQ SCH (21:00)
[2019-10-17] MEDS: SODIUM CHLORIDE 0.9% 1000ML 1,000 ML IV SCH (22:09)
[2019-10-17] MEDS: HEPARIN SOD 5,000 UNIT/0.5 ML VIAL SQ SCH (22:25)
[2019-10-17] MEDS: INSULIN ASPART 100 UNITS/ML 3 ML PEN SC SCH (22:26)
[2019-10-18 00:34] LABS: Appearance Urine Clear (Clear); Bacteria Urine Automated Negative (Negative); Bilirubin Urine Negative (Negative); Blood Urine Negative (Negative); Cast Urine Automated 0 /lpf (0-5); Color Urine Yellow; Glucose Urine UA Negative (Negative); Ketones Urine Negative (Negative); Leukocyte Esterase Urine Trace (Negative); Nitrite Urine Negative (Negative); Protein Urine Negative (Negative); RBC Urine Automated 0-4 /hpf (0-4); Specific Gravity Urine 1.018 (1.000-1.030); Urobilinogen Urine Negative (Negative)
[2019-10-18 00:44] LABS: Sodium Random Urine 60 mmol/L; Urine Chloride 53 mmol/L; Urine Potassium 29.8 mmol/L; Urine Sodium 60 mmol/L
[2019-10-18 00:47] LABS: Total Protein Urine Random < 5.0 mg/dl (0-11.9)
[2019-10-18] MEDS: NICOTINE 21 MG/24 HR TDSY TD SCH ×2 (04:31→09:24)
[2019-10-18 05:53] LABS: Basophils # (auto) 0.02 K/uL (0-0.2); Basophils % (auto) 0.2 %; Eosinophils # (auto) 0.31 K/uL (0-0.5); Eosinophils % (auto) 3.7 %; Hematocrit (blood only) 37.7 % (37-47); Hemoglobin 12.3 g/dL (12.0-16.0); Immature Granulocytes # (auto) 0.04 K/uL (0.00-0.02); Immature Granulocytes % (auto) 0.5 %; Lymphocytes # (auto) 2.76 K/uL (1.2-3.4); Lymphocytes % (auto) 33.3 %; Mean Corpuscular Hemoglobin 28.9 pg (25-34); Mean Corpuscular Hgb Conc 32.6 g/dL (32-36); Mean Corpuscular Volume 88.7 fL (80-100); Monocytes # (auto) 0.48 K/uL (0.11-0.59); Monocytes % (auto) 5.8 %; Neutrophils # (auto) 4.67 K/uL (1.4-6.5); Neutrophils % (auto) 56.5 %; Platelet Count 185 K/uL (130-400); RDW Coefficient of Variation 13.9 % (11.5-14.5); Red Blood Count 4.25 M/uL (4.2-5.4); White Blood Count 8.28 K/uL (4.8-10.8)
[2019-10-18 06:01] LABS: Estimated Average Glucose 220 mg/dl; Hemoglobin A1C 9.3 % (4.5-5.6)
--- NOTE | 2019-10-18 06:25 | Ultrasound Report ---
US venous doppler LE BI HISTORY: Pain. Edema. rule out DVT COMPARISON STUDY: None. FINDINGS: There is normal compressibility, flow, and augmentation within the bilateral lower extremit y deep venous systems. IMPRESSION: No DVT within the right or left lower extremity. ACT 112: Negative or not required by law. The above report was generated using voice recognition software. It may contain grammatical, syntax or spelling errors. Electronically signed by: Donn Lazaro M.D. 10/18/2019 6:24 AM
[2019-10-18] MEDS ORDERED: LEVOTHYROXINE SODIUM 150 MCG TABLET PO SCH (06:30)
[2019-10-18 06:35] LABS: Albumin Globulin Ratio 1.1 (0.9-2); Albumin Level 3.1 gm/dl (3.4-5.0); BUN Creatinine Ratio 22.8 (10-20); Bilirubin,Total 0.6 mg/dl (0.2-1); Calcium 8.5 mg/dl (8.5-10.1); Est GFR (African American) 84.6; Globulin 2.9 gm/dl (2.5-4.0)
[2019-10-18] MEDS ORDERED: ROSUVASTATIN CALCIUM 20 MG TAB PO SCH (09:00)
[2019-10-18] MEDS ORDERED: INSULIN GLARGINE SOLOSTAR 100 UNITS/ML 3 ML PEN SQ SCH (09:00)
[2019-10-18] MEDS: HEPARIN SOD 5,000 UNIT/0.5 ML VIAL SQ SCH (09:27)
[2019-10-18] MEDS: INSULIN ASPART 100 UNITS/ML 3 ML PEN SC SCH ×2 (09:36→12:11)
[2019-10-18] MEDS: SODIUM CHLORIDE 0.9% 1000ML 1,000 ML IV SCH (09:45)
--- NOTE | 2019-10-18 13:00 | Hospitalist Progress Note ---
Date of Service October 18, 2019 Assessment & Plan (1) GEORGE (acute kidney injury): Patient presented to the ER on 10/17/2019 with with 2 weeks of diarrhea and recently also feels shortness of breath and also reported to ED wale of headache, has outpatient history of migraine headaches, recent mild throat pain that resolved, and also reported of myalgia in nonspecific areas of the body of the trunk/back/legs. Patient found to have acute kidney injury with creatinine of 1.88 -reports recent diarrhea in 2 weeks -admission creatinine of 1.88 compared to outpatient labs of creatinine under 1 suggests pre-renal acute injury from dehydration; patient was hydrating with juice at home and given her diabetes, she can have more urine output if drinking sugar loaded beverages. admission serum calcium of 10.3 as well as leukocytosis of 15,000 may reflect dehydration -given IV fluids with normal saline Patient's creatinine, white blood cell counts, and serum calcium were elevated because of dehydration and normalized by 10/18/2019 with IV fluids. On room air. (2) Myalgia: -may be related to dehydration -Patient is ruled out for COVID-19 with negative COVID 19 testing. no pneumonia and no pulmonary edema on lung imaging. -creatinine kinase is normal -negative Lyme testing on admission -Obesity may increase incidence of myalgia, advise weight loss with primary care doctor but this can be difficult given high insulin needs at home Patient advised that weight loss, oral hydration with water, will help with myalgia symptoms. Lyme disease testing is negative. Stop Meloxicam pain medication at home because this can worsen kidney function Hypothyroidism -TSH in normal range, continue home dose Levothyroxine History of migraines -prn acetaminophen (3) Shortness of breath: -patient's subjective shortness of breath is vaguely described -patient's outpatient history of Nocturnal hypoxemia and given her large body habitus, there may be component of obstructive sleep apnea that needs to be ruled out as outpatient -mild persistent asthma on outpatient records but no wheezing on lung exam -admission Chest X ray are not impressive for acute pulmonary condition: No pneumothorax. No pleural effusions. Mild chronic interstitial thickening, unchanged. The heart is normal in size. No new focal lung consolidations to suggest pneumonia. No evidence for pulmonary edema. -procalcitonin negative -ultrasound of the legs ruled out DVT Depression, Post Traumatic Stress Disorder, Schizoaffective Disorder, Generalized Anxiety Disorder -the home medications were held while treating the diarrhea and acute kidney injury -resume on discharge (4) Diabetes type 2, uncontrolled: Obesity with BMI 48.4, Type 2 diabetes Mellitus with correction current use of insulin (with other complication of poorly controlled diabetes) -Patient's HbA1c on this admission is 9.3 compared to outpatient of HbA1c of 9.9 in the past as outpatient. Patient blood sugars noted to be 88 in the AM of 10/18/2019 and the daily dose of Lantus of 42 units daily was held. Patient reports inconsistent checking of blood glucose. -Advise that patient continue check glucose at home consistently as 3 times a day with before breakfast, after lunch, and after dinner to provide primary care doctor with more accurate blood glucose in the future to manage diabetes to limit risk of hypoglycemia -Patient may continue home dose diabetes medications and insulin as 55 units every night for now. If blood sugars are more elevated above 250 then she can resume her day time dose of 42 units of Lantus with night time insulin Patient need to go to following primary care appointments 10/24/2019 8:00 AM Provider Lisa Coppola PA-C Department [facility] 10/26/2019 10:30 AM Provider [facility] Department Pharmacy, [facility] 11/26/2019 10:40 AM Provider Marc Joseph MD Department [facility] Admission and Anticipated Discharge Date Admission Date: October 17, 2019 Subjective patient sitting in chair. no acute distress. some complains of mild back and thigh muscle ache but no tenderness on palpation that elicits more pain. no headache. no dizziness. no vomiting. no acute abdominal pain. no acute chest pain. breathing on room air. discharge plans discussed at length Review of Systems Review of Systems: All systems reviewed & are unremarkable except as noted in Subjective Physical Exam Constitutional: WD/WN, vitals as above + obese and cooperative Eyes: PERRL, conjunctivae normal, anicteric sclerae EOM intact bilaterally ENMT: external ear and nose normal, oropharynx normal Neck: normal visual inspection Respiratory: normal respiratory effort, lungs clear to auscultation Cardiovascular: Rate/Rhythm: regular rate and regular rhythm Gastrointestinal (Abdomen): normal bowel sounds, soft, nontender, no hepatosplenomegaly Percussion/Palpation: abdomen soft Musculoskeletal: Head/Neck/Chest: normocephalic and head atraumatic Neurologic: PERRL, EOMI, accommodation nl, no face palsy, no dysarthria CN's II-XI intact bilaterally Psychiatric: A+Ox3, euthymic affect Results & Data Results & Data ([facility]) Vital Signs (Past 12 Hours) Vital Signs Temp Pulse Resp BP Pulse Ox 10/18/19 07:44 36.9 C 69 16 105/63 94
--- NOTE | 2019-10-18 13:05 | Discharge Summary ---
Date of Service October 18, 2019 Admission HPI Per Admitting Provider This is a patient who is obese with 2 weeks of diarrhea and recently also feels shorteness of breath and also reported to ED physican of headache, has outpatient history of migraine headaches, recent mild throat pain that resolved, and also reported of myalgia in nonspecific areas of the body of the trunk/back/legs. Patient found to have acute kidney injury with creatinine of 1.88. Patient denies fevers. She was sent off COVID 19 nasal swab by ED provider because of miscellaneous, non specific symptoms. ED provider also ruled out Lyme disease with testing. Patient not in acute distress. She reports she has been hydrating with juice and she is insulin dependent diabetic. 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 (with other complication of poorly controlled diabetes) Discharge Exam Constitutional WD/WN, vitals as above + obese and cooperative Eyes PERRL, conjunctivae normal, anicteric sclerae EOM intact bilaterally ENMT external ear and nose normal, oropharynx normal Neck normal visual inspection Respiratory normal respiratory effort, lungs clear to auscultation Cardiovascular Rate/Rhythm: regular rate and regular rhythm Gastrointestinal (Abdomen) normal bowel sounds, soft, nontender, no hepatosplenomegaly Percussion/Palpation: abdomen soft Musculoskeletal Head/Neck/Chest: normocephalic and head atraumatic Neurologic PERRL, EOMI, accommodation nl, no face palsy, no dysarthria CN's II-XI intact bilaterally Psychiatric A+Ox3, euthymic affect Discharge Data Allergies Allergy/AdvReac Type Severity Reaction Status Date / Time shellfish derived Allergy Intermediate IF EATEN Verified 10/17/19 16:01 IN LARGE AMT--NAUSEA, SMALL AMT OK. valproic acid Allergy Unknown Unknown Verified 10/17/19 16:01 lithium AdvReac Intermediate CLUMSY Verified 10/17/19 16:01 WHEN WALKING Consultations 10/17/19 17:09 ED Decision to Admit Stat Ordered Studies 10/17/19 19:00 US venous doppler LE KELLY Urgent Hospital Course (1) GEORGE (acute kidney injury): Patient presented to the ER on 10/17/2019 with with 2 weeks of diarrhea and recently also feels shortness of breath and also reported to ED andreiaan of headache, has outpatient history of migraine headaches, recent mild throat pain that resolved, and also reported of myalgia in nonspecific areas of the body of the trunk/back/legs. Patient found to have acute kidney injury with creatinine of 1.88 -reports recent diarrhea in 2 weeks -admission creatinine of 1.88 compared to outpatient labs of creatinine under 1 suggests pre-renal acute injury from dehydration; patient was hydrating with juice at home and given her diabetes, she can have more urine output if drinking sugar loaded beverages. admission serum calcium of 10.3 as well as leukocytosis of 15,000 may reflect dehydration -given IV fluids with normal saline Patient's creatinine, white blood cell counts, and serum calcium were elevated because of dehydration and normalized by 10/18/2019 with IV fluids. On room air. (2) Myalgia: -may be related to dehydration -Patient is ruled out for COVID-19 with negative COVID 19 testing. no pneumonia and no pulmonary edema on lung imaging. -creatinine kinase is normal -negative Lyme testing on admission -Obesity may increase incidence of myalgia, advise weight loss with primary care doctor but this can be difficult given high insulin needs at home Patient advised that weight loss, oral hydration with water, will help with myalgia symptoms. Lyme disease testing is negative. Stop Meloxicam pain medication at home because this can worsen kidney function Hypothyroidism -TSH in normal range, continue home dose Levothyroxine History of migraines -prn acetaminophen (3) Shortness of breath: -patient's subjective shortness of breath is vaguely described -patient's outpatient history of Nocturnal hypoxemia and given her large body habitus, there may be component of obstructive sleep apnea that needs to be ruled out as outpatient -mild persistent asthma on outpatient records but no wheezing on lung exam -admission Chest X ray are not impressive for acute pulmonary condition: No pneumothorax. No pleural effusions. Mild chronic interstitial thickening, unchanged. The heart is normal in size. No new focal lung consolidations to suggest pneumonia. No evidence for pulmonary edema. -procalcitonin negative -ultrasound of the legs ruled out DVT Depression, Post Traumatic Stress Disorder, Schizoaffective Disorder, Generalized Anxiety Disorder -the home medications were held while treating the diarrhea and acute kidney injury -resume on discharge (4) Diabetes type 2, uncontrolled: Obesity with BMI 48.4, Type 2 diabetes Mellitus with [facility] current use of insulin (with other complication of poorly controlled diabetes) -Patient's HbA1c on this admission is 9.3 compared to outpatient of HbA1c of 9.9 in the past as outpatient. Patient blood sugars noted to be 88 in the AM of 10/18/2019 and the daily dose of Lantus of 42 units daily was held. Patient reports inconsistent checking of blood glucose. -Advise that patient continue check glucose at home consistently as 3 times a day with before breakfast, after lunch, and after dinner to provide primary care doctor with more accurate blood glucose in the future to manage diabetes to limit risk of hypoglycemia -Patient may continue home dose diabetes medications and insulin as 55 units every night for now. If blood sugars are more elevated above 250 then she can resume her day time dose of 42 units of Lantus with night time insulin Patient need to go to following primary care appointments 10/24/2019 8:00 AM Provider Lisa Coppola PA-C Department [facility] 10/26/2019 10:30 AM Provider [facility] Department Pharmacy, [facility] 11/26/2019 10:40 AM Provider Marc Joseph MD Department [facility] Total Time Total Time Spent Total Time Spent (In Minutes): 40 minutes Total Time Includes: Examination of the Patient, Discharge Planning, Medication Reconciliation and Communication With Other Providers Discharge Plan Discharge Items Patient Disposition: Home - Self-Care Reason For Visit: DEHYDRATION,MILD HYPERCALEMIA,ACUTE KIDNEY INJURY Discharge Diagnosis: Acute Kidney Injury, Myalgia, Shortness of breath, Obesity with BMI 48.4, Type 2 diabetes Mellitus with [facility] current use of insulin (with other complication of poorly controlled diabetes) Condition on Discharge: Good Activity: Resume your previous activity Non-emergency contact: Primary Care Provider Call non-emergency contact if: you have any medication questions Follow-up/Referrals: Marc Joseph MD [Primary Care Provider] - 10/24/19 8:00 am (10/24/2019 8:00 AM Provider Lisa Coppola PA-C Department [facility] ) Diet: Carb Consistent or DM2 Addtl Attending Provider Instructions: Patient presented to the ER on 10/17/2019 with with 2 weeks of diarrhea and recently also feels shortness of breath and also reported to ED physican of headache, has outpatient history of migraine headaches, recent mild throat pain that resolved, and also reported of myalgia in nonspecific areas of the body of the trunk/back/legs. Patient found to have acute kidney injury with creatinine of 1.88 Patient is ruled out for COVID-19 with negative COVID 19 testing. no pneumonia and no pulmonary edema on lung imaging. Patient's creatinine, white blood cell counts, and serum calcium were elevated because of dehydration and normalized by 10/18/2019 with IV fluids. On room air. ultrasound of the legs ruled out DVT Patient's HbA1c on this admission is 9.3 compared to outpatient of HbA1c of 9.9 in the past as outpatient. Patient blood sugars noted to be 88 in the AM of 10/18/2019 and the daily dose of Lantus of 42 units daily was held. Patient reports inconsistent checking of blood glucose. Advise that patient continue check glucose at home consistently as 3 times a day with before breakfast, after lunch, and after dinner to provide primary care doctor with more accurate blood glucose in the future to manage diabetes to limit risk of hypoglycemia Patient may continue home dose diabetes medications and insulin as 55 units every night for now. If blood sugars are more elevated above 250 then she can resume her day time dose of 42 units of Lantus with night time insulin Patient advised that weight loss, oral hydration with water, will help with myalgia symptoms. Lyme disease testing is negative. Stop Meloxicam pain medication at home because this can worsen kidney function -patient's outpatient history of Nocturnal hypoxemia and given her large body habitus, there may be component of obstructive sleep apnea that needs to be ruled out as outpatient Patient need to go to following primary care appointments 10/24/2019 8:00 AM Provider Lisa Coppola PA-C Department [facility] 10/26/2019 10:30 AM Provider [facility] Department Pharmacy, [facility] 11/26/2019 10:40 AM Provider Marc Joseph MD Department [facility] Pending Studies at Discharge: No Stand-Alone Forms: [facility] [employer], Smoking Cessation Medications and DC Order Prescriptions: Continued metformin 500 mg Tablet 1,000 mg PO BID RF: 0 repaglinide 2 mg Tablet 4 mg PO ACHS RF: 0 lisinopril 20 mg Tablet 20 mg PO DAILY RF: 0 sertraline 100 mg tablet 200 mg PO QAM RF: 0 calcium carbonate-vitamin D3 [Calcium 600 + D(3)] 600 mg(1,500mg) -200 unit Tablet 1 tab PO DAILY RF: 0 amitriptyline 50 mg Tablet 50 mg PO HS RF: 0 trazodone 150 mg tablet 150 mg PO HS RF: 0 levothyroxine 150 mcg Tablet 150 mcg PO QAM RF: 0 hydroxyzine HCl 25 mg tablet 25 mg PO BID RF: 0 ergocalciferol (vitamin D2) 50,000 unit capsule 50,000 unit PO WK RF: 0 ezetimibe 10 mg Tablet 10 mg PO DAILY RF: 0 aripiprazole 10 mg tablet 10 mg PO DAILY RF: 0 rosuvastatin 40 mg Tablet 40 mg PO DAILY RF: 0 Spectravite Adult 50 Plus 0.4-300-250 mg-mcg-mcg Tablet 1 tab PO DAILY RF: 0 Lantus Solostar U-100 Insulin 100 unit/mL (3 mL) Insulin Pen 55 units subcut HS RF: 0 rizatriptan 10 mg tablet 10 mg PO DIRECTED PRN (Reason: Migraine Headache) RF: 0 zolpidem 10 mg tablet 10 mg PO DIRECTED PRN (Reason: Sleep) RF: 0 Discontinued meloxicam 15 mg Tablet 15 mg PO DAILY RF: 0 Lantus Solostar U-100 Insulin 100 unit/mL (3 mL) Insulin Pen 42 units subcut QAM RF: 0 Discharge Orders: Discharge Order (Routine); Ordered 10/18/19 Ordered By: Tj England/Other Patient Handouts: 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
== END 2019-10-18 14:29 | disposition home or self-care (01) | DRG 683 ==
LOC: ED 14:03 → 2N 17:46